=== PATIENT | female | born 1975 | race Caucasian/White ===

== ENCOUNTER 2020-06-02 14:44 | Emergency (ER) | payer MEDICARE ==
[2020-06-02 16:12] LABS: BASOPHIL 0.7 % (0-2); BILIRUBIN NEGATIVE (NEGATIVE); BLOOD NEGATIVE Ery/uL (NEGATIVE); CLARITY CLEAR (CLEAR); COLOR YELLOW (YELLOW); EOSINOPHIL 2.7 % (0-5); GLUCOSE (U) NORMAL (NORMAL); HCT 43.5 % (37.0-47.0); HGB 13.9 g/dl (12.5-16.0); LEUKOCYTES NEGATIVE Leu/uL (NEGATIVE); MCH 30.5 pg (25.0-31.0); MCV 95.4 fL (78.0-100.0); MONOCYTE 9.1 % (0-12); MPV 10.2 fL (6.0-9.5); NITRITE NEGATIVE (NEGATIVE); NRBC 0; PLT 261 K/uL (150-400); PROTEIN NEGATIVE (NEGATIVE); RBC 4.56 M/uL (4.20-5.40); RDW 12.6 % (11.5-14.0); UROBILINOGEN 0.2 mg/dL (0.2-1.0); WBC 8.4 K/uL (4.0-10.5)
[2020-06-02 16:19] LABS: INR 0.98 (0.9-1.2); PROTHROMBIN TIME 12.3 SECONDS (11.4-13.6)
[2020-06-02 16:34] LABS: PRO-BNP 1152 pg/mL (<125)
[2020-06-02 16:39] LABS: ALBUMIN 3.4 g/dL (3.4-5.0); BILIRUBIN - TOTAL 0.3 mg/dL (0.2-1.0); BUN/CREAT RATIO (CALC) 11.7 RATIO; C-REACTIVE PROTEIN 0.2 mg/dL (<=0.90); CREATININE 0.77 mg/dL (0.51-0.95); GLOBULIN (CALCULATION) 3.5 g/dL; MAGNESIUM 2.1 mg/dL (1.8-2.4); POTASSIUM 4.1 mmol/L (3.5-5.1); TOTAL PROTEIN 6.9 g/dL (6.4-8.2)
[2020-06-02 16:49] LABS: CORONAVIRUS 2019 SARS-COV-2 NEGATIVE (NEGATIVE); INFLUENZA A NAA NEGATIVE (NEGATIVE)
[2020-06-02 17:18] LABS: AMPHETAMINES NEGATIVE (NEGATIVE); BARBITURATES NEGATIVE (NEGATIVE); ECSTASY (MDMA) NEGATIVE (NEGATIVE); MARIJUANA (THC) NEGATIVE (NEGATIVE); METHADONE NEGATIVE (NEGATIVE); OPIATES NEGATIVE (NEGATIVE); OXYCODONE NEGATIVE (NEGATIVE)
[2020-06-02] MEDS ORDERED: VENTOLIN HFA18 GM INH (18:33)
[2020-06-02] MEDS ORDERED: VIBRAMYCIN100 MG PO (18:33)
[2020-06-02] MEDS ORDERED: MEDROL 4MG DOSEP4 MG PO (18:33)
[2020-06-02] MEDS ORDERED: NAPROXEN500 MG PO (18:33)
== END 2020-06-02 18:42 | disposition home or self-care (01) ==
LOC: FER 14:44
PROVIDERS: Emergency Medicine
DX: B34.9 Viral infection, unspecified (principal); I10 Essential (primary) hypertension; F15.90 Other stimulant use, unspecified, uncomplicated; F17.210 Nicotine dependence, cigarettes, uncomplicated; Z20.822 Contact with and (suspected) exposure to COVID-19
CPT/HCPCS: 36415; 71250; 80053; 80305; 81003; 82728; 83540; 83605; 83615; 83735; 83880; 84145; 84443; 84484; 85025; 85610; 86140; 93005; J1170; J1885; J2060; J2405; J3490; U0002